=== PATIENT | male | born 1995 | race Caucasian/White ===

== ENCOUNTER 2019-04-13 18:45 | Emergency (ER) | payer OTHER ==
[2019-04-13 19:37] VITALS: BP 132/73; PULSE 95; TEMP 98.9; BMI 29.5
[2019-04-13] MEDS ORDERED: ALBUTEROL SO4 2.5/IPRATROPIUM 0.5 INH SOL 3 ML VIAL.NEB. NEB ONE ×2 (20:37→20:40)
--- NOTE | 2019-04-14 01:55 | PDOC ---
Documentation entered by Margie Jarvis SCRIBE, acting as scribe for Verenice Che MD. Verenice Che MD: This documentation has been prepared by the bustereMatheus Aiswarya, SCRIBE, under my direction and personally reviewed by me in its entirety. I confirm that the documentation accurately reflects all work, treatment, procedures, and medical decision making performed by me. History of Present Illness - General Chief Complaint: Respiratory Stated Complaint: COUGH, SORE THROAT, NASAL CONGESTION Time Seen by Provider: 04/13/19 19:17 History Source: Patient Exam Limitations: No Limitations - History of Present Illness Initial Comments: 04/13/19 21:56 The patient is a 24 year old male, with a significant PMH kidney stones and schizophrenia, who presents to the emergency department with a sore throat that began 3 days ago. The patient states he had a cold 3 days ago ( sore throat and back pain) that progressively worsened today. He reports he vomited a mckeon of mucus today around 7 pm today, sob, and nasal congestion after a nap today. Patient reports he smokes 1 cigar/ day and 1 pack of cigarettes/ 2 day.The patient denies chest pain, headache and dizziness.Denies fever, chills, diarrhea and constipation. Denies dysuria, frequency, urgency and hematuria. Allergies: amoxicillin Past surgical history: None reported Social history: Admits to smoking cigars and cigarettes. PCP: None reported Past History - Past Medical History Allergies/Adverse Reactions: Allergies Allergy/AdvReac Type Severity Reaction Status Date / Time amoxicillin [Amoxicillin] Allergy Hives, Verified 04/13/19 18:46 throat swelling Home Medications: Ambulatory Orders Aripiprazole [Abilify] 15 mg PO DAILY tablet 03/28/17 Albuterol Sulfate Inhaler - [Ventolin HFA Inhaler -] 1 - 2 inh PO QID PRN #1 inhaler 04/13/19 Cefuroxime Axetil [Ceftin -] 500 mg PO Q12H #20 tablet 04/13/19 COPD: No Kidney Stones: Yes Psychiatric Problems: Yes (SCHIZOPHRENIA) - Suicide/Smoking/Psychosocial Hx Smoking History: Unknown if ever smoked Have you smoked in the past 12 months: Yes Number of Cigarettes Smoked Daily: 1 'Breaking Loose' booklet given: 05/05/15 Hx Alcohol Use: Yes Drug/Substance Use Hx: Yes Substance Use Type: Alcohol Review of Systems - Review of Systems Able to Perform ROS?: Yes Comments:: 04/13/19 21:56 GENERAL/CONSTITUTIONAL: No fever or chills. No weakness. HEAD, EYES, EARS, NOSE AND THROAT:+Sore throat. No change in vision. No ear pain or discharge. CARDIOVASCULAR: No chest pain or shortness of breath. RESPIRATORY: No cough, wheezing, or hemoptysis. GASTROINTESTINAL: No nausea, vomiting, diarrhea or constipation. GENITOURINARY: No dysuria, frequency, or change in urination. MUSCULOSKELETAL: No joint or muscle swelling or pain. No neck or back pain. SKIN: No rash NEUROLOGIC: No headache, vertigo, loss of consciousness, or change in strength/ sensation. ENDOCRINE: No increased thirst. No abnormal weight change. HEMATOLOGIC/LYMPHATIC: No anemia, easy bleeding, or history of blood clots. ALLERGIC/IMMUNOLOGIC: No hives or skin allergy. *Physical Exam - Vital Signs Last Vital Signs Temp Pulse Resp BP Pulse Ox 98.9 F 95 H 18 132/73 97 04/13/19 18:45 04/13/19 18:45 04/13/19 18:45 04/13/19 18:45 04/13/19 18:45 - Physical Exam Comments: 04/13/19 21:57 GENERAL: Awake, alert, and fully oriented, in no acute distress HEAD: No signs of trauma EYES: PERRLA, EOMI, sclera anicteric, conjunctiva clear ENT:+Mild bilateral frontal tenderness.+Dry mucous. +Mild pharyngitis erythema, No exudate or masses. Auricles normal inspection, hearing grossly normal, nares patent, oropharynx clear without exudates. NECK: Normal ROM, supple, no lymphadenopathy, JVD, or masses LUNGS: Breath sounds equal, clear to auscultation bilaterally. No wheezes, and no crackles HEART: Regular rate and rhythm, normal S1 and S2, no murmurs, rubs or gallops ABDOMEN: Soft, nontender, normoactive bowel sounds. No guarding, no rebound. No masses EXTREMITIES: Normal range of motion, no edema. No clubbing or cyanosis. No cords, erythema, or tenderness NEUROLOGICAL: Cranial nerves II through XII grossly intact. Normal speech, normal gait SKIN: Warm, Dry, normal turgor, no rashes or lesions noted. Medical Decision Making - Medical Decision Making As noted above, this 24-year-old man with a history of schizophrenia and renal stones presents with a few day history of facial discomfort/postnasal drip/ productive cough. Exam as noted. Although the patient does not have active wheezing, air exchange is somewhat decreased. Therefore DuoNeb nebulizer treatment given. Patient will be treated for sinusitis/bronchitis with antibiotics: All of the patient has a history of amoxicillin ALLERGY has taken cefuroxime in the past without ALLERGIC reaction. He will be started on Ceftin 500 mg twice a day for 10 days. Patient has had a history of asthmatic bronchitis, needing intermittent albuterol inhaler. A new prescription for albuterol inhaler sent to patient's pharmacy. He has been advised to drink plenty of water and also consider using mucolytic agent such as guaifenesin. He has been strongly advised to avoid all smoking. He should follow-up with his own general doctor and return to the ER if he has shortness of breath/wheezing/high fever *DC/Admit/Observation/Transfer Diagnosis at time of Disposition: Bronchitis Sinusitis Qualifiers: Sinusitis location: frontal Chronicity: acute Recurrence: non-recurrent Qualified Code(s): J01.10 - Acute frontal sinusitis, unspecified - Discharge Dispostion Disposition: HOME Condition at time of disposition: Stable - Prescriptions Prescriptions: Albuterol Sulfate Inhaler - [Ventolin HFA Inhaler -] 1 - 2 inh PO QID PRN #1 inhaler PRN Reason: Shortness Of Breath Cefuroxime Axetil [Ceftin -] 500 mg PO Q12H #20 tablet - Referrals - Patient Instructions Printed Discharge Instructions: DI for Acute Bronchitis Additional Instructions: Rest; drink plenty of water Albuterol 1-2 puffs every 4-6 hours as needed for wheezing or shortness of breath Ceftin (cefuroxime) 500 mg twice a day for 10 days Consider guaifenesin (Mucinex) if phlegm continues to be thick Avoid all smoking Follow-up with your general medical doctor within the next 5 days Return to ER if you have persistent shortness of breath or high fever - Post Discharge Activity
== END 2019-04-13 20:55 | disposition home or self-care (01) ==
LOC: FER 18:45
PROC: 3E0F7GC Introduction of Other Therapeutic Substance into Respiratory Tract, Via Natural or Artificial Opening (ICD-10-PCS; principal; 2019-04-13)
DX: J40 Bronchitis, not specified as acute or chronic (principal); J01.10 Acute frontal sinusitis, unspecified; F20.9 Schizophrenia, unspecified
CPT/HCPCS: 94640; 99283-25